=== PATIENT | male | born 2000 | race African-American/Black ===

== ENCOUNTER 2021-01-19 09:59 | Emergency (ER) | payer MEDICAID ==
[~2021-01-19] VITALS: Ht 182.9 cm; Wt 79.4 kg
[2021-01-19 10:00] VITALS: BP 121/80
--- NOTE | 2021-01-19 10:09 | NUR ---
PT AMBULATED TO ER BED 4 WITH A STEADY GAIT.
--- NOTE | 2021-01-19 10:16 | NUR ---
DR. GAMEZ AT PT BEDSIDE FOR FURTHER EVALUATION.
--- NOTE | 2021-01-19 10:16 | NUR ---
20 Y/O MALE C/O PAIN TO RIGHT SIDE OF FOREHEAD 08/18 DESCRIBES SHARP NON-RADIATING [id number]. PT STATES PAIN HAS BECOME WORST IN LAST WEEK. DENIES TRAUMA/INJURY. DENIES FEVER/CHILLS. DENIES N/V. DENIES SOB. DENIES SYNCOPE. DENIES LOC. DENIES PMH NKA
--- NOTE | 2021-01-19 10:19 | NUR ---
DR. GAMEZ AT PT BEDSIDE WITH US FOR FURTHER ASSESSMENT.
[2021-01-19] MEDS ORDERED: CEPH-588 PO (10:26)
[2021-01-19 10:34] VITALS: BP 118/74
--- NOTE | 2021-01-19 10:35 | NUR ---
Patient discharged with v/s stable. Written and verbal after care instructions given FOR CELLULITIS AND EPIDERMAL CYST and explained. Patient alert, oriented and verbalized understanding of instructions. Ambulatory with steady gait. All questions addressed prior to discharge. ID band removed. Patient advised to follow up with PMD. Rx of KEFLEX given. Patient educated on indication of medication including possible reaction and side effects. Opportunity to ask questions provided and answered.
== END 2021-01-19 10:35 | disposition home or self-care (01) ==
LOC: MED 09:59
DX: L03.811 Cellulitis of head [any part, except face] (principal); D36.7 Benign neoplasm of other specified sites; F12.90 Cannabis use, unspecified, uncomplicated; Z79.899 Other long term (current) drug therapy
CPT/HCPCS: 99283; 99284

== ENCOUNTER 2021-01-23 16:32 | Emergency (ER) | payer MEDICAID ==
[~2021-01-23] VITALS: Ht 182.9 cm; Wt 71.2 kg
[~2021-01-23 16:32] MED LIST: CEPH-588 PO
[2021-01-23 16:50] VITALS: BP 126/58
--- NOTE | 2021-01-23 16:56 | NUR ---
Pt to wait in lobby for next available bed
--- NOTE | 2021-01-23 18:30 | NUR ---
20 y/o M BIB self from home for cyst recheck and worsening pain. Pt seen here 01/19/21 and diagnosed with epidermal cyst to forehead, compliant with prescribed Keflex. 05/18, sharp/intermittent, non-radiating. Worsens with pressure. Denies fever, chills, headache, blurry vision. Denies medications prior to arrival. Bed locked in lowest position, side rails x 1, call light in reach. PMH/Meds/Sx: Denies NKDA
--- NOTE | 2021-01-23 18:30 | NUR ---
Dr. Cortes is evaluating patient at bedside
[2021-01-23 18:45] VITALS: BP 117/68
--- NOTE | 2021-01-23 18:52 | NUR ---
Patient discharged with v/s stable. Written and verbal after care instructions given and explained. Patient verbalized understanding. Ambulatory with steady gait. All questions addressed prior to discharge. Advised to follow up with PMD. PCP resource sheet provided per request.
== END 2021-01-23 18:52 | disposition home or self-care (01) ==
LOC: MED 16:32
DX: D17.9 Benign lipomatous neoplasm, unspecified (principal); Z79.899 Other long term (current) drug therapy
CPT/HCPCS: 99281

== ENCOUNTER 2021-01-26 14:01 | Emergency (ER) | payer MEDICAID ==
[~2021-01-26] VITALS: Ht 182.9 cm; Wt 69.9 kg
[2021-01-26 14:08] VITALS: BP 106/74
[2021-01-26] MEDS ORDERED: BACITRACIN OINT 500 UNITS/GM PKT TP ONE (14:50)
[2021-01-26] MEDS ORDERED: LIDOCAINE MPF 1% 10 MG/ML VIAL INJ ONE ×3 (14:50→15:15)
--- NOTE | 2021-01-26 15:04 | NUR ---
PT AMBULATED TO BED 9 AND PT'S LAC IRRIGATED WITH NORMAL SALINE.
[2021-01-26] MEDS ORDERED: CEPH-588 PO (15:29)
[2021-01-26] MEDS ORDERED: BACI1PAC6 TP (15:29)
--- NOTE | 2021-01-26 15:37 | NUR ---
APPLIED BACITRACIN TO PT'S LAC AND DRESSED WITH BIG BANDAID
[2021-01-26 15:48] VITALS: BP 106/74
--- NOTE | 2021-01-26 15:49 | NUR ---
Patient discharged with v/s stable. Written and verbal after care instructions given FOR LIPOMA and explained. Patient alert, oriented and verbalized understanding of instructions. Ambulatory with steady gait. All questions addressed prior to discharge. ID band removed. Patient advised to follow up with PMD. Rx of BACITRACIN AND KEFLE given. Patient educated on indication of medication including possible reaction and side effects. Opportunity to ask questions provided and answered.
== END 2021-01-26 15:49 | disposition home or self-care (01) ==
LOC: MED 14:01
DX: S01.81XA Laceration without foreign body of other part of head, initial encounter (principal); D17.0 Benign lipomatous neoplasm of skin and subcutaneous tissue of head, face and neck; Z79.899 Other long term (current) drug therapy; W45.8XXA Other foreign body or object entering through skin, initial encounter; Y93.89 Activity, other specified; Y92.89 Other specified places as the place of occurrence of the external cause; Y99.8 Other external cause status
CPT/HCPCS: 12011; 99283; J2001